=== PATIENT | female | born 1965 | race Caucasian/White ===

== ENCOUNTER 2024-08-01 18:58 | Emergency (ER) | payer BC ==
[~2024-08-01] VITALS: Ht 165.1 cm; Wt 81.6 kg
[2024-08-01 19:46] VITALS: BP 152/88
[2024-08-01 20:00] VITALS: BP 147/99
[2024-08-01 20:15] VITALS: BP 160/99
[2024-08-01 20:40] VITALS: BP 160/99
== END 2024-08-01 20:40 | disposition home or self-care (01) | DRG 563 ==
LOC: ED 18:58
DX: S63.501A Unspecified sprain of right wrist, initial encounter (principal); W17.89XA Other fall from one level to another, initial encounter